=== PATIENT | female | born 1955 | race African-American/Black ===

== ENCOUNTER → 2016-11-17 | Outpatient (CLI) | payer MEDICARE, OTHER ==
[2015-10-02 03:43] VITALS: BP 162/84
[~2016-11-17] MED LIST: AMIT25TA PO; CELE200C PO; DILT120T4 PO; GABA800T PO; HYDR-2666 PO; LEVE500T56 PO; LIDO700A4 TP; MELO-156 PO; METF10002 PO; NYST237S MM; OLME1TAB3 PO; ORPH100T PO; TRAM50TA PO; dyazide
--- NOTE | 2016-11-17 10:20 | RAD ---
Chest, 2 views, 11/17/2016: History: Cough, sinus drainage Comparison is made to a study from 05/07/2014. The heart size and pulmonary vascularity are normal. No pulmonary infiltrates are seen. There is no evidence of pleural fluid. There are bridging osteophytes in the mid and lower thoracic spine. IMPRESSION: No acute cardiopulmonary abnormality is detected.
== END | disposition home or self-care (01) ==
LOC: DXRADRC 08:43
PROVIDERS: ATTEND Physician Assistant Medical
DX: M25.78 Osteophyte, vertebrae (principal); R05 Cough
CPT/HCPCS: 71020

== ENCOUNTER → 2016-12-06 | Outpatient (CLI) | payer MEDICARE ==
[2015-10-02 03:43] VITALS: BP 162/84
--- NOTE | 2016-12-06 11:19 | RAD ---
DATE: 12/06/2016 EXAM: MAMMO OK SCREENING BILATERAL HISTORY: Screening COMPARISON: Digitized film screen examination from 01/14/2009 This study was interpreted with the benefit of Computerized Aided Detection (CAD). FINDINGS: The breast parenchyma is primarily fatty replaced. Breast parenchyma level density A.. No mass or suspect calcifications are seen in either breast. Occasional benign-appearing calcifications are noted in both breasts. IMPRESSION: Benign findings BI-RADS CATEGORY: 2 BENIGN FINDING(S) RECOMMENDED FOLLOW-UP: 12M 12 MONTH FOLLOW-UP PQRS compliance statement: Patient information was entered into a reminder system with a target due date 12/06/2017 for the next mammogram. Mammography is a sensitive method for finding small breast cancers, but it does not detect them all and is not a substitute for careful clinical examination. A negative mammogram does not negate a clinically suspicious finding and should not result in delay in biopsying a clinically suspicious abnormality. "Our facility is accredited by the [employer] Mammography [employer]."
== END | disposition home or self-care (01) ==
LOC: MAMMO 07:42
PROVIDERS: ATTEND Nurse Practitioner Family
DX: Z12.31 Encounter for screening mammogram for malignant neoplasm of breast (principal)
CPT/HCPCS: 77063; G0202; 77067

== ENCOUNTER → 2016-12-27 | Outpatient (CLI) | payer MEDICARE ==
[2015-10-02 03:43] VITALS: BP 162/84
--- NOTE | 2016-12-27 10:55 | RAD ---
Exam performed: The contrast barium enema. History: Chronic constipation, incomplete colonoscopy 2 weeks ago. Date of service: 12/27/16. Comparison: No relevant previous exams are available for comparison. Total fluoroscopy time: 2.8 minutes. Findings: A preliminary appeals writer film of the abdomen demonstrates nonspecific, nondistended bowel loops. No abnormal calcifications are seen. Patient was tipped and barium was filled in the colon in a retrograde fashion. After removing excess barium, air was insufflated to distend the colon. Several overhead and fluoroscopic images were taken The rectum appears normal. Sigmoid colon is somewhat redundant and contains few diverticuli. The descending colon, splenic flexure and transverse colon appear normal. The ascending colon is situated in the left hemiabdomen with the cecum situated in the left lower abdomen. Scattered colonic diverticuli are noted. No areas of abnormal narrowing or mucosal irregularity are seen. Impression: Malpositioned ascending colon and cecum as outlined above. Findings could be related to malrotation. It is recommended that a Barium meal follow through exam may be obtained to further evaluate the degree of malrotation.
== END | disposition home or self-care (01) ==
LOC: RAD 08:28
PROVIDERS: ATTEND Internal Medicine Gastroenterology
DX: K59.09 Other constipation (principal); K31.89 Other diseases of stomach and duodenum
CPT/HCPCS: 74270

== ENCOUNTER → 2017-01-05 | Outpatient (CLI) | payer MEDICARE ==
[2015-10-02 03:43] VITALS: BP 162/84
[~2017-01-05] MED LIST changes: +BARIUM SULFATE 60% 355 ML SUSP PO ONE; +BARIUM SULFATE 98% 135 ML SUSP PO ONE; -HYDR-2666 PO; +HYDR-2758 PO; -MELO-156 PO; +MELO7.5T29 PO; +OLME1TAB23 PO; -OLME1TAB3 PO; +ORPH-16 PO; -ORPH100T PO
--- NOTE | 2017-01-05 17:14 | RAD ---
Examination: Upper GI exam with small bowel follow-through History: History of abdominal pain Comparison: None available Technique: Patient was brought to the fluoroscopic suite. Patient was asked informed of the procedure. Thin and thick barium was used. Findings: There is normal transit of contrast within the esophagus. No evidence of diverticula or filling defect identified in the esophagus. The stomach is mildly distended. The duodenum does not appear to cross the midline and majority of the small bowel is on the right likely secondary to developmental malrotation. No evidence of small bowel obstruction identified. At 145 minutes patient said that she had another appointment to go to and could not finish the exam however she returned back at 355 minutes at which point two radiographic images were performed which demonstrates contrast in the ascending and transverse colon. The ascending colon appears to be on the left. Impression: Majority of the small bowel is on the right and the ascending colon to the left suggesting developmental malrotation. No evidence of small bowel obstruction. Total fluoroscopy time 1.5 minutes. Total fluoroscopic images 13.
== END | disposition home or self-care (01) ==
LOC: DXRAD 08:02
PROVIDERS: ATTEND Internal Medicine Gastroenterology
DX: R10.9 Unspecified abdominal pain (principal)
CPT/HCPCS: 74245

== ENCOUNTER 2017-03-19 08:48 | Emergency (ER) | payer OTHER, MEDICARE ==
[~2017-03-19] VITALS: Ht 165.1 cm; Wt 81.6 kg
[2017-03-19 08:48] VITALS: BP 149/76
[~2017-03-19 08:48] MED LIST changes: -BARIUM SULFATE 60% 355 ML SUSP PO ONE; -BARIUM SULFATE 98% 135 ML SUSP PO ONE
[2017-03-19] MEDS ORDERED: HYDR-971 PO (09:23)
[2017-03-19] MEDS ORDERED: PRED50TA PO (09:23)
--- NOTE | 2017-03-19 09:23 | PHYS DOC ---
Past History Past Medical History: Diabetes, DVT, Hypertension, Seizure, Other Past Surgical History: Tonsillectomy, Tubal ligation Alcohol Use: None Drug Use: None Adult General Chief Complaint Chief Complaint: LOWER BACK PAIN OR INJURY HPI HPI Patient is a 61-year-old female who presents ambulatory to the ED with the complaint of low back pain and pain down her right leg. The patient has been suffering from low back pain and back problems for several years. She has seen a pain management doctor. She was told that she is not a candidate for surgery. She actually has an appointment for an epidural steroid injection coming up this week. She recently had an epidural steroid injection last month. Her pain has been manageable with some steroid injections in other noninvasive therapies off and on for several years. She states that this time her pain is nearly unbearable. She doesn't have anything strong for pain. She is not able to tolerate tramadol because something procedure and it might have been that. She has been taking her medication as prescribed including Lyrica, Robaxin, NSAID. She has pain from her right upper buttock down through her right buttock into her right thigh and her right lower leg. She has numbness of the lateral aspect of her right thigh. She can't sit on the toilet because of the pain. It keeps her up at night. She's had trouble getting anything done because of the pain. Review of Systems Review of Systems Constitutional: Denies fever or chills [] Eyes: Denies change in visual acuity, redness, or eye pain [] HENT: Denies nasal congestion or sore throat [] : Denies dysuria or hematuria [] Musculoskeletal: As in history of present illness Integument: Denies rash or skin lesions [] Allergies Allergies Allergies Coded Allergies Type Severity Reaction Last Updated Verified Penicillins Allergy Intermediate rash 05/07/14 No cephalexin Allergy Intermediate throat swelling 05/07/14 No morphine Allergy Intermediate rash 05/07/14 No Physical Exam Physical Exam Constitutional: Well developed, well nourished, ambulates with difficulty due to pain, seems to be very uncomfortable, alert, mentating normally HENT: Normocephalic, atraumatic, bilateral external ears normal, nose normal. [ ] Eyes: conjunctiva normal, no discharge. [] Neck: Normal range of motion, no stridor. [] Skin: Warm, dry, no erythema, no rash. [] Back: No tenderness, no CVA tenderness. No skin color changes or abnormalities over the right low back Extremities: DTRs 2 over 4 and equal bilaterally, leg extension 5 over 5 and equal bilaterally, dorsiflexion of the great toe 5 over 5 and equal bilaterally. There is numbness and paresthesia over the right anterolateral thigh. No skin abnormalities in this area or elsewhere on the right leg. Neurologic: Alert and oriented X 3, normal motor function, normal sensory function, no focal deficits noted. [] EKG EKG [] Radiology/Procedures Radiology/Procedures [] Course & Med Decision Making Course & Med Decision Making Pertinent Labs and Imaging studies reviewed. (See chart for details) 61-year-old female with chronic back pain and related problems who does have follow-up in place and does have a pain management doctor presents with more severe pain in her right low back, right by , and right leg, which definitely sounds like a radiculopathy at this time. Patient is complaining of significant worsening of her symptoms, I believe she likely has more of a lumbar radiculopathy now that she has had in the past. We will try a short course of steroids and a prescription for opiate pain medicines for a short time until she can see her painter spring. See instructions for plan. [] Dragon Disclaimer Dragon Disclaimer This chart was dictated in whole or in part using Voice Recognition software in a busy, high-work load, and often noisy Emergency Department environment. It may contain unintended and wholly unrecognized errors or omissions. Departure Departure: Impression: Primary Impression: Lumbar back pain with radiculopathy affecting left lower extremity Disposition: 01 HOME, SELF-CARE Condition: STABLE Referrals: JACEK LAZO (PCP) Patient Instructions: Lumbosacral Radiculopathy Additional Instructions: I believe your leg pain and numbness is being caused by nerve pain from your low back. Sometimes the nerve is "pinched" by a bulging disc, a bone problem, or some other cause. Sometimes, it is just inflamed or painful for another reason. We will start you on a short course of prednisone (steroid) which usually helps nerve pain. You had your first dose here this morning, your next dose is due Tuesday morning. Continue taking all of your prescribed medicines. I have also prescribed hydrocodone for more severe pain. This is an opiate, do not take while driving, it will be sedating and constipating. Keep your appointment on March 22 with your doctor as planned. Scripts Hydrocodone Bit/Acetaminophen (NORCO 5-325 TABLET) 1 Each Tablet 1-2 TAB PO Q4-6HRS for leg pain, nerve pain, #20 TAB Prov: PORFIRIO TEIXEIRA MD 03/19/17 Prednisone (PREDNISONE) 50 Mg Tablet 1 TAB PO DAILY for leg pain, nerve pain, #5 TAB Start on Tuesday morning First dose was given in the ED on Tuesday Prov: PORFIRIO TEIXEIRA MD 03/19/17 PORFIRIO TEIXEIRA MD Mar 19, 2017 09:23
[2017-03-19] MEDS ORDERED: predniSONE 10 MG TABLET PO ONE (09:30)
== END 2017-03-19 10:00 | disposition home or self-care (01) ==
LOC: ER 08:48
DX: M54.16 Radiculopathy, lumbar region (principal); E11.9 Type 2 diabetes mellitus without complications; I10 Essential (primary) hypertension; Z86.718 Personal history of other venous thrombosis and embolism; Z88.0 Allergy status to penicillin; Z88.1 Allergy status to other antibiotic agents; Z88.5 Allergy status to narcotic agent
CPT/HCPCS: 99283; J7512

== ENCOUNTER → 2017-09-30 | Outpatient (CLI) | payer OTHER ==
[~2017-09-30] MED LIST changes: +HYDR-971 PO; +PRED50TA PO
--- NOTE | 2017-09-30 09:43 | RAD ---
2 views of the Chest 09/30/2017 2:00 AM Indication: CHEST CONGESTION Comparison: 2 views the chest November 17, 2016 Findings: There is no focal consolidation or infiltrate identified. There is no effusion or pneumothorax. The cardiomediastinal silhouette and pulmonary vasculature are within normal limits. No osseous abnormality is identified. Impression: No evidence of acute cardiopulmonary process.
== END | disposition home or self-care (01) ==
LOC: PMG 08:14
PROVIDERS: ATTEND Physician Assistant Medical
DX: R09.89 Other specified symptoms and signs involving the circulatory and respiratory systems (principal); I10 Essential (primary) hypertension; E11.9 Type 2 diabetes mellitus without complications
CPT/HCPCS: 71046

== ENCOUNTER → 2018-12-26 | Outpatient (CLI) | payer OTHER ==
[~2018-12-26] MED LIST changes: +HYDR-2155 PO; -HYDR-2758 PO; +HYDR-3165 PO; -HYDR-971 PO; -METF10002 PO; +METF10007 PO
--- NOTE | 2018-12-26 16:18 | RAD ---
EXAM: AP and lateral views of the bilateral knees DATE: 12/26/2018 12:00 AM INDICATION: BILATERAL KNEE PAIN COMPARISON: No Prior FINDINGS/ IMPRESSION: No evidence of acute fracture or dislocation. Bilateral knee joint osteoarthritis with medial compartment joint space narrowing and tricompartment osteophytes. No left or right knee joint effusion. Electronically signed by: Karthik Tilley MD (12/26/2018 4:15 PM) [id number]
== END | disposition home or self-care (01) ==
LOC: PMG 15:12
DX: M17.0 Bilateral primary osteoarthritis of knee (principal); M25.762 Osteophyte, left knee; M25.761 Osteophyte, right knee
CPT/HCPCS: 73560

== ENCOUNTER → 2020-05-27 | Outpatient (CLI) | payer MEDICARE ==
--- NOTE | 2020-05-27 11:27 | RAD ---
BILATERAL SCREENING MAMMOGRAM, 3-D History: Routine screening. Comparison: 01/14/2009, 12/06/2016. Technique: MLO and CC digital tomosynthesis (3D) images obtained. Radiologist reviewed these images on dedicated workstation. Findings: Breast Tissue Density B : There are scattered areas of fibroglandular density. There are no dominant masses, suspicious microcalcifications, or architectural distortion. IMPRESSION: No mammographic evidence of malignancy. Recommend routine screening. BI-RADS category 1: Negative. The images were reviewed with computer-aided detection. Patient information is entered into reminder system with a target due date for the next screening mammogram. Mammography is the most sensitive method for finding small breast cancers, but it does not detect them all and is not a substitute for careful clinical examination. A negative mammogram does not negate a clinically suspicious finding and should not result in delay in biopsying a clinically suspicious abnormality. "Our facility is accredited by the [employer] Mammography Program." Electronically signed by: Steven Lockhart MD (05/27/2020 11:25 AM) [email or web address]
== END ==
LOC: MAMMO 09:13
PROVIDERS: ATTEND Physician Assistant
DX: Z12.31 Encounter for screening mammogram for malignant neoplasm of breast (principal)
CPT/HCPCS: 77063; 77067

== ENCOUNTER → 2020-06-17 | Outpatient (CLI) | payer MEDICARE | LOC: LAB 11:48 | PROVIDERS: ATTEND Physician Assistant Medical | DX: Z01.812 Encounter for preprocedural laboratory examination (principal); U07.1 COVID-19; R06.02 Shortness of breath | CPT/HCPCS: U0003 ==

== ENCOUNTER → 2020-07-22 | Outpatient (CLI) | payer MEDICARE ==
--- NOTE | 2020-07-22 17:28 | RAD ---
Right shoulder 3 views. HISTORY: Pain right shoulder 3 views were taken of the right shoulder. There is arthritis at the acromioclavicular joint with spurring. There is no acute fracture or dislocation. There is no other acute osseous abnormality. IMPRESSION: 1. Arthritis at the acromioclavicular joint. 2. No fracture or dislocation or other acute osseous abnormality. Electronically signed by: Octavio Sorensen MD (07/22/2020 5:25 PM) [id number]
== END ==
LOC: DXRAD 15:57
PROVIDERS: ATTEND Physician Assistant Medical
DX: M19.011 Primary osteoarthritis, right shoulder (principal)
CPT/HCPCS: 73030

== ENCOUNTER → 2021-07-01 | Outpatient (CLI) | payer MEDICARE ==
--- NOTE | 2021-07-01 11:18 | RAD ---
INDICATION : Routine Screening. COMPARISON: Priors including May 2020 TECHNIQUE: Standard mammogram screening views of the bilateral breasts were obtained with 3D tomosynt hesis. CAD was utilized. FINDINGS: The breasts are fatty density. No definite suspicious mass. IMPRESSION: BI-RADS Category 2: Benign findings. Recommend repeat screening exam in one year. The patient was placed into the recall system with a suggested recall date for follow up imaging. Mammography is the most sensitive method for finding small breast cancers, but it does not detect the m all and is not a substitute for careful clinical examination. A negative mammogram does not negate a clinically suspicious finding and should not result in delay in biopsying a clinically suspicious abnormality. Electronically signed by: Christiano Krishnamurthy MD (07/01/2021 11:15 AM) [id number]
== END ==
LOC: MAMMO 08:17
PROVIDERS: ATTEND Physician Assistant
DX: Z12.31 Encounter for screening mammogram for malignant neoplasm of breast (principal)
CPT/HCPCS: 77063; 77067

== ENCOUNTER → 2021-08-18 | Outpatient (CLI) | payer MEDICARE ==
--- NOTE | 2021-08-18 11:20 | RAD ---
EXAM: Left lower extremity venous Doppler. HISTORY: Left lower extremity pain/swelling. History of deep venous thrombosis. COMPARISON: None. FINDINGS: Grayscale and Doppler analysis of the left lower extremity deep venous system was performed with graded compression and augmentation. The common femoral, greater saphenous, superficial femoral , popliteal and calf veins were assessed. There is no evidence of deep venous thrombosis. IMPRESSION: 1. No evidence of deep venous thrombosis. Electronically signed by: Cristi Robertson MD (08/18/2021 11:18 AM) [id number]
== END ==
LOC: US 10:29
PROVIDERS: ATTEND Physician Assistant
DX: M79.89 Other specified soft tissue disorders (principal); M79.605 Pain in left leg; Z86.718 Personal history of other venous thrombosis and embolism; I87.1 Compression of vein
CPT/HCPCS: 93971

== ENCOUNTER → 2021-10-21 | Outpatient (CLI) | payer MEDICARE ==
[2021-10-21 17:28] LABS: ALBUMIN 3.5 g/dL (3.4-5.0); ALBUMIN/GLOBULIN RATIO 0.9 (1.0-1.7); CALCIUM 9.2 mg/dL (8.5-10.1); CREATININE 1.1 mg/dL (0.6-1.0); GFR 60.5; POTASSIUM 3.8 mmol/L (3.5-5.1); TOTAL BILIRUBIN 0.4 mg/dL (0.2-1.0); TOTAL PROTEIN 7.5 g/dL (6.4-8.2)
[2021-10-22 16:28] LABS: CHOLESTEROL/HDL RATIO 2.3
== END ==
LOC: LAB 16:04
PROVIDERS: ATTEND Internal Medicine Cardiovascular Disease
DX: E11.9 Type 2 diabetes mellitus without complications (principal)
CPT/HCPCS: 36415; 80053; 80061

== ENCOUNTER → 2021-11-11 | Outpatient (CLI) | payer MEDICARE ==
--- NOTE | 2021-11-12 09:21 | RAD ---
XR KNEE_LT 1-2 VIEWS, XR KNEE_AP BILAT STANDING History: Reason: PAIN / Spl. Instructions: / History: Technique: AP standing view bilateral knees and 2 additional views of the left knee. Comparison: December 26, 2018. Findings: Moderate to advanced left knee degenerative changes most prominent within the medial and patellofemor al compartments. No significant knee joint effusion. No dislocation. No acute fracture. Lateral la lar tilt. Moderate right knee degenerative changes partially imaged on AP view. Impression: 1. Moderate to advanced left knee DJD, progressed compared to 2019. Electronically signed by: Lenny Camarillo DO (11/12/2021 9:19 AM) [id number]
== END ==
LOC: RAD 16:17
PROVIDERS: ATTEND Orthopaedic Surgery Sports Medicine
DX: M17.0 Bilateral primary osteoarthritis of knee (principal)
CPT/HCPCS: 73560; 73565